=== PATIENT | female | born 1935 | race Caucasian/White ===

== ENCOUNTER → 2018-01-26 | Outpatient (REF) ==
[~2018-01-26] MED LIST: FIBER0.52 GM PO; K-TAB10 PO; LASIX 20MG TABL20 MG PO; NORVASC 5MG5 MG/TAB PO; PROTONIX 40MG T40 MG PO; SENOKOT S 50 MG1 TAB PO; STOOL SOFTENER100 M2 PO; ULTRAM 50MG TAB50 MG PO
== END ==
LOC: ZLAB.WCH 13:13
DX: Z01.89 Encounter for other specified special examinations (principal)

== ENCOUNTER → 2020-08-25 | Outpatient (REF) ==
[~2020-08-25] MED LIST changes: +CALCITRIOL PO; +CEPHALEXIN500 M1 PO; +COSOPT 2%-0.5%10 ML OU; +DICLOZOR1 EACH TP; +FERRO-TIME325 MG PO; +MIRALAX PA17 GM/Dose PO; +ORAPRED ODT10 MG PO; +SENNA-LAX8.6 MG PO; +XALATAN EYE DROPS OD; +XARELTO15 MG PO; +ZESTRIL 5MG5 MG PO; +ZOFRAN ODT4 MG PO; +ZYLOPRIM 100MG100 MG PO
== END ==
LOC: ZLAB.WCH 16:00
DX: Z01.89 Encounter for other specified special examinations (principal)

== ENCOUNTER → 2020-09-17 | Outpatient (CLI) | payer OTHER ==
[~2020-09-17] VITALS: Ht 157.5 cm; Wt 62.5 kg
[2020-09-17 11:24] VITALS: BP 109/61; PULSE 79; TEMP 98.2
--- NOTE | 2020-09-17 12:30 | NUR ---
Pt taken out from [facility] by [facility] to be returned to [facility].
== END ==
LOC: EUO 08:16
DX: Z45.2 Encounter for adjustment and management of vascular access device (principal); L03.90 Cellulitis, unspecified
CPT/HCPCS: C1751

== ENCOUNTER 2021-03-07 15:40 | Observation (INO) | payer MEDICARE ==
[~2021-03-07] VITALS: Ht 157.5 cm; Wt 61.2 kg
[~2021-03-07 15:40] MED LIST changes: -XALATAN EYE DROPS OD; +XALATAN EYE DROPS OS
[2021-03-07 15:54] VITALS: BP 132/58; PULSE 93; TEMP 97.8
[2021-03-07] MEDS ORDERED: XARELTO20 MG PO (16:08)
[2021-03-07] MEDS ORDERED: PRINIVIL10 MG PO (16:09)
[2021-03-07] MEDS ORDERED: LASIX 40MG TABL40 MG PO (16:10)
[2021-03-07] MEDS ORDERED: PREDFORTE5ML OD (16:11)
[2021-03-07] MEDS ORDERED: COLACE 100100 MG/CAP PO (16:13)
[2021-03-07] MEDS ORDERED: COSOPT 2%-0.5%10 ML OS (16:14)
[2021-03-07] MEDS ORDERED: ATROPINE SULFATE5 ML OD (16:14)
[2021-03-07] MEDS ORDERED: ZAROXOLYN 2.52.5 MG PO (16:15)
--- NOTE | 2021-03-07 16:26 | NUR ---
PT ARRIVED TO FLOOR, VITALS TAKEN, ASSESSMENT PERFORMED, PT DENIES DIZZINESS, DENIES PAIN, NO OTHER NEEDS
[2021-03-07 16:51] LABS: BASO % 0.4 % (0.0-2.0); EOS % 0.5 % (0.0-4.0); GRAN # 5.7 K/mm3 (1.4-6.5); GRAN % 70.6 % (42.2-75.2); LYMPH # 1.9 K/mm3 (1.2-3.4); LYMPH % 22.8 % (20.0-51.0); MEAN CELL VOLUME 97 fl (80.0-100.0); MEAN CORPUSCULAR HGB CONC 30 g/dl (33.0-37.0); MONO # 0.4 K/mm3 (0.1-0.6); MONO % 5.1 % (1.7-9.3); PLATELET COUNT 225 K/mm3 (130-400); RED BLOOD COUNT 1.76 M/mm3 (4.10-5.30); REDCELL DISTRIBUTION WIDTH-CV 17.8 % (11.5-14.5)
[2021-03-07 16:54] LABS: HEMATOCRIT 17.1 % (37.0-47.0); HEMOGLOBIN 5.2 g/dl (12.5-16.0); MEAN CORPUSCULAR HEMOGLOBIN 30 pg (27-31)
--- NOTE | 2021-03-07 17:54 | NUR ---
PT PLEASANT, AOX4, DENIES PIAN, DIZZINESS, BOTTOM EXCORIATED BUT BLANCHABLE. PT WHEEL CHAIR BOUND AT HOME, WILL START BOWEL PREP TONIGHT, NO OTHER NEEDS
[2021-03-07 18:37] LABS: ALANINE AMINOTRANSFERASE < 6 U/L (0-55); ALBUMIN 2.8 gm/dL (3.4-4.8); ALKALINE PHOSPHATASE 33 U/L (40-150); ANION GAP 11 mmol/L (7-16); AST,SGOT 14 U/L (5-34); BILIRUBIN,TOTAL 0.3 mg/dL (0.2-1.2); BLOOD UREA NITROGEN 89 mg/dL (10-20); CALCIUM 7.6 mg/dL (8.4-10.2); CARBON DIOXIDE 17 mmol/L (23-31); CHLORIDE 116 mmol/L (98-107); CREATININE, serum 1.99 mg/dL (0.57-1.11); GLUCOSE 109 mg/dL (70-99); POTASSIUM 4.2 mmol/L (3.5-4.5); SODIUM 144 mmol/L (136-145); TOTAL PROTEIN 4.6 gm/dL (6.2-8.1)
--- NOTE | 2021-03-07 18:39 | NUR ---
BOWEL PREP TAKEN TO PT, EDUCATED ON DRINKING UNTIL STOOL IS CLEAR
[2021-03-07 22:18] VITALS: BP 159/57; PULSE 85; TEMP 98
[2021-03-07 22:30] VITALS: BP 111/46; PULSE 95; TEMP 98
[2021-03-07 23:20] VITALS: BP 137/81; PULSE 95; TEMP 98
[2021-03-08] VITALS (15 sets, daily range): BP systolic 89–154; BP diastolic 27–96; PULSE 87–106; TEMP 97.5–99.6
[2021-03-08 06:43] LABS: MEAN CORPUSCULAR HGB CONC 33 g/dl (33.0-37.0); MEAN PLATELET VOLUME 9.9 fl (7.4-10.4); PLATELET COUNT 193 K/mm3 (130-400); RED BLOOD COUNT 2.75 M/mm3 (4.10-5.30); REDCELL DISTRIBUTION WIDTH-CV 17.4 % (11.5-14.5)
[2021-03-08 06:46] LABS: HEMATOCRIT 24.7 % (37.0-47.0); HEMOGLOBIN 8.2 g/dl (12.5-16.0); MEAN CELL VOLUME 90 fl (80.0-100.0); MEAN CORPUSCULAR HEMOGLOBIN 30 pg (27-31)
[2021-03-08 06:56] LABS: CALCIUM 7.6 mg/dL (8.4-10.2); CREATININE, serum 1.66 mg/dL (0.57-1.11); POTASSIUM 3.7 mmol/L (3.5-4.5)
[2021-03-08 07:33] LABS: ANISOCYTOSIS 1+; BAND 6 % (0-10); LYMPHOCYTE 3 % (20.0-51.0); NEUTROPHILS 91 % (42.0-75.2); OVALOCYTES 1+; PLATELET ESTIMATE NORMAL (NORMAL); SCHISTOCYTES 1+
--- NOTE | 2021-03-08 07:38 | NUR ---
transfused 2 units this shift of RBCs, c/o nausea during 2nd unit, SRUTHI Mccray notified for prn order of zofran, dose given which pt reported helped. pt had 4 episodes of loose brownish-green, dark blackish-red stool, was able to drink 2L of golytely before becoming nauseated. pt c/o generalized pain in upper and lower limbs with touch and movement, tramadol 100 mg given x2 this shift.
--- NOTE | 2021-03-08 10:54 | NUR ---
Assessment completed, alert /oriented, vital signs stable/ slight hypotensive and holding on antihypertensive meds this morning, heart RRR/ distal pulses are palapble, 3+edema to BLE, hemaglobin 8.2 this morning after having received 2 units PRBC overnight, lungs CTA/ no resp.difficulty noted, housekeeping room attendant reports good bowel prep results, patient has been NPO and consent signed for EGD/Colonsocpy today, family present in the room, they deny toher needs at this time
--- NOTE | 2021-03-08 11:17 | NUR ---
health outreach worker met with patient to discuss discharge plan. Patient's Dejan ([phone]) and daughter at bedside. Patient reports that she needs assistance with her activities of daily living, most of which is provided by her ,but she does report to having a private duty caregiver that comes in once a week to help with showering. Patient states that she is cheel chair bound. Patient reports that she has oxygen at home but she "doesn't use it" and thinks that it is supplied through [facility]. PCP is Dr. Lema and she utilizes [facility] for medications with no cost difficulty. Patient reports that she does not have a DPOA-HC established and at this time is not interested in one. Education is provided to the patient, her and daughter and what a legal DPOA-HC is. All verbalize their understanding and patient still declines establishing one. Patient is already established with [facility] out of [place] for PT/OT and nursing. Discharge plan: Awaiting PT/OT rec's
[2021-03-08 17:41] LABS: HEMATOCRIT 23.3 % (37.0-47.0); HEMOGLOBIN 7.7 g/dl (12.5-16.0)
[2021-03-09 00:32] VITALS: BP 129/53; PULSE 87; TEMP 98.4
[2021-03-09 01:44] LABS: COLLECTION METHOD CLEAN CATCH
--- NOTE | 2021-03-09 01:45 | NUR ---
IT IS NOTED THAT [facility] IS ORDERED FOR PT BUT HAS BEEN COLLECTED. PT IS INCONTINENT OF BOWEL ET BLADDER. Jose NEGRO NOTIFIED ET NEW ORDER RECIEVED TO STRAIGHT CATH PT ONCE. PT IS AWAKE @ THIS TIME LOOKING @ TABLET, PROCEDURE EXPLAINED TO PT ET PT VERBALIZES UNDERSTANDING. PCT BRIGID ASSISTS IN ROOM WITH PT. LUPE CARE COMPLETED BEFORE ET AFTER. PT IS BLADDER SCANNED BEFORE BEING CATHETERIZED, 150 ML SEEN IN BLADDER. PT IS INCONTINENT OF SOME URINE ET WAS NOT AWARE. PT HAS WHITE DISCHARGE AROUND VULVA ET BUTTOCKS. SKIN IS RED ET MOIST. PT STATES THAT AREA DOES NOT HURT BUT THAT SHE WAS BEING TREATED FOR A YEAST INFECTION BEFORE BEING HOSIPTALIZED. INCONTINENCE BRIEF TAKEN OFF OF PT ET IS LEFT WITH JUST A PAD UNDERNEATH. Jose NEGRO NOTIFIED, NEW ORDERS RECIEVED. PT IS SLEEPING, DESENEX POWDER WILL BE APPLIED WHEN PT IS TURNED NEXT TIME. RESPIRATIONS ARE UNLABORED. CALL LIGHT WITHIN REACH.
[2021-03-09 01:50] LABS: PH 5 (5-8); SQUAMOUS EPITHELIAL None Seen /hpf (0-10); URINE APPEARANCE Clear (CLEAR/HAZY); URINE BACTERIA Rare /hpf (NONE SEEN); URINE BILIRUBIN Negative (NEGATIVE); URINE BLOOD Negative (NEGATIVE); URINE COLOR Yellow (YELLOW); URINE GLUCOSE Negative (NEGATIVE); URINE KETONE Trace (NEGATIVE); URINE LEUKOCYTE ESTERASE Negative (NEGATIVE); URINE NITRATE Negative (NEGATIVE); URINE PROTEIN(semi-quant) Negative (NEGATIVE); URINE RBC 0-2 /hpf (0-2); URINE UROBILINOGEN Negative (NEGATIVE)
[2021-03-09 04:44] VITALS: BP 104/72; PULSE 90; TEMP 98.2
[2021-03-09 06:32] LABS: BASO # 0.1 K/mm3 (0.0-0.2); BASO % 0.5 % (0.0-2.0); EOS # 0.1 K/mm3 (0.0-0.7); EOS % 0.9 % (0.0-4.0); GRAN # 9.9 K/mm3 (1.4-6.5); GRAN % 81.4 % (42.2-75.2); LYMPH # 1.5 K/mm3 (1.2-3.4); LYMPH % 12.5 % (20.0-51.0); MEAN CELL VOLUME 90 fl (80.0-100.0); MEAN CORPUSCULAR HGB CONC 33 g/dl (33.0-37.0); MEAN PLATELET VOLUME 9.8 fl (7.4-10.4); MONO # 0.5 K/mm3 (0.1-0.6); PLATELET COUNT 182 K/mm3 (130-400); RED BLOOD COUNT 2.34 M/mm3 (4.10-5.30)
[2021-03-09 06:34] LABS: HEMATOCRIT 21.1 % (37.0-47.0); MEAN CORPUSCULAR HEMOGLOBIN 30 pg (27-31)
--- NOTE | 2021-03-09 06:48 | NUR ---
PT CHECKED FOR INCONTINENCE ET REPOSITIONED IN BED. GAYMAR BOOTS ON BILATERAL FEET. PT DENIES PAIN ET IS NOT INCONTINENT. GOWN IS CHANGED. CARAFATE IS ADMINISTERED ET PT IS EDUCATED ON TIMING OF TAKING MEDICATION ET MEAL TIMES.
[2021-03-09 06:55] LABS: CALCIUM 7.5 mg/dL (8.4-10.2); CREATININE, serum 1.41 mg/dL (0.57-1.11); POTASSIUM 3.7 mmol/L (3.5-4.5)
[2021-03-09 07:55] VITALS: BP 127/59; PULSE 97; TEMP 98.4
--- NOTE | 2021-03-09 08:55 | NUR ---
Assessment completed, alert/oriented, vital signs stable, denies pain this morning, hemaglobin 7.0, no bloody stools or bleeding noted overnight or this morning, heart RRR/distal pulses are palpable, lungs CTA/ no resp.difficulty noted, she is sitting up eating breakfast, morning meds given, she denies other needs at this time will cotinue to monitor
[2021-03-09 12:09] VITALS: BP 101/43; PULSE 89; TEMP 98.6
--- NOTE | 2021-03-09 15:49 | NUR ---
First visit from the gas operator. No needs right now.
[2021-03-09 16:35] LABS: HEMATOCRIT 21.7 % (37.0-47.0); HEMOGLOBIN 7.1 g/dl (12.5-16.0)
[2021-03-09 17:18] VITALS: BP 128/47; PULSE 89; TEMP 98.9
[2021-03-09 20:24] VITALS: BP 126/57; PULSE 97; TEMP 98.2
[2021-03-10] VITALS (7 sets, daily range): BP systolic 125–146; BP diastolic 57–89; PULSE 84–94; TEMP 98–98.8
--- NOTE | 2021-03-10 06:00 | NUR ---
PT IS AWAKE @ THIS TIME, HAS SLEPT ON ET OFF THROUGH NIGHT IN BED. PT HAS BEEN REPOSITIONED. BILATERAL GAYMAR BOOTS IN PLACE. PUREWICK HAS BEEN CHANGED ET IS IN PLACE. PERICARE COMPLETED. LIGHT SILVA CLOUDY URINE IS SEEN IN CANNISTER. PT USES TABLET WHILE IN BED. RESPIRATIONS UNLABORED. PT DENIES OTHER NEEDS. CALL LIGHT WITHIN REACH.
[2021-03-10 06:16] LABS: MEAN CELL VOLUME 91 fl (80.0-100.0); MEAN CORPUSCULAR HGB CONC 33 g/dl (33.0-37.0); MEAN PLATELET VOLUME 9.8 fl (7.4-10.4); PLATELET COUNT 182 K/mm3 (130-400); RED BLOOD COUNT 2.39 M/mm3 (4.10-5.30); REDCELL DISTRIBUTION WIDTH-CV 17.5 % (11.5-14.5)
[2021-03-10 06:19] LABS: CALCIUM 7.7 mg/dL (8.4-10.2); CREATININE, serum 1.15 mg/dL (0.57-1.11); POTASSIUM 4.1 mmol/L (3.5-4.5)
[2021-03-10 06:25] LABS: HEMATOCRIT 21.7 % (37.0-47.0); HEMOGLOBIN 7.1 g/dl (12.5-16.0); MEAN CORPUSCULAR HEMOGLOBIN 30 pg (27-31)
--- NOTE | 2021-03-10 11:28 | NUR ---
Patient playing on tablet upon entering the room. Scheduled medications given. Shift assessment performed. Skin issues noted in shift assessment. Patient denies any pain, discomfort, SOA, or further needs at this time. Family updated on plan of care. VSS. Patient A&O. Call light in reach. Fall percautions in place.
--- NOTE | 2021-03-10 14:14 | NUR ---
Patient is going to require Eloquis at time of discharge. BERENICE collaborated with Delroy, Pharmacist who has been working with the family, [facility], and Hospitalist on this as patient's insurance changes at the beginning of the new year. BERENICE contacted Mari at [facility] and faxed clinical updates. Discharge Plan: Home with [facility]
--- NOTE | 2021-03-10 17:33 | NUR ---
Patient has had an ok day. Denies any pain, discomfort, SOA, or further needs at this time. Eliquis restarted. No s/s of bleeding. Patient able to get up in wheelchair with the assistance of PT. Family updated on plan of care. VSS. Patient A&O. Call light in reach. Fall percautions in place.
--- NOTE | 2021-03-10 23:44 | NUR ---
ASSESSMENT COMPLETE FOR THIS SHIFT. PT COOPERATIVE WITH CARES. PT RESTING IN BED WATCHING TV. PT DENIES PALPITATIONS, SOB OR DIZZINESS. PT DENIED PAIN EARLIER IN SHIFT, BUT AROUND 2300HRS, COMPLAINED OF ARM PAIN WHICH SHE RATED AN 8. TRAMADOL GIVEN FOR PAIN. PT STATES SHE HAS NO OTHER NEEDS AT THIS TIME. CALL LIGHT WITHIN REACH.
[2021-03-11 03:50] VITALS: BP 125/67; PULSE 83; TEMP 98.4
[2021-03-11 05:52] LABS: MEAN CELL VOLUME 91 fl (80.0-100.0); MEAN CORPUSCULAR HGB CONC 32 g/dl (33.0-37.0); MEAN PLATELET VOLUME 9.5 fl (7.4-10.4); PLATELET COUNT 202 K/mm3 (130-400); RED BLOOD COUNT 2.43 M/mm3 (4.10-5.30); REDCELL DISTRIBUTION WIDTH-CV 17.2 % (11.5-14.5)
[2021-03-11 06:04] LABS: CALCIUM 7.8 mg/dL (8.4-10.2); CREATININE, serum 1.11 mg/dL (0.57-1.11); POTASSIUM 4.3 mmol/L (3.5-4.5)
[2021-03-11 06:18] LABS: HEMATOCRIT 22.2 % (37.0-47.0); HEMOGLOBIN 7.2 g/dl (12.5-16.0); MEAN CORPUSCULAR HEMOGLOBIN 30 pg (27-31)
[2021-03-11 07:56] VITALS: BP 114/56; PULSE 96; TEMP 99.2
[2021-03-11] MEDS ORDERED: ELIQUIS 2.5 PO ×2 (08:56→08:57)
--- NOTE | 2021-03-11 12:01 | NUR ---
cargo station worker met with patient and her family as patient is discharging home this date. Worker contacted [facility] in [place] and advised of discharge as well as faxed them orders. Worker and pharmacist provided information on Eliquis.
--- NOTE | 2021-03-11 12:30 | NUR ---
Scheduled medications given. Shift assessment performed. Skin issued noted in shift assessment. VSS. Patient A&O. Patient deemed fit for discharge home with home health. Discharge education/instructions given. All questions and concerns answered. IV DC'd, catheter intact, no signs of phlebitis. Skin tears cleaned, new dressing placed. Patient denies any pain, discomfort, SOA, or further needs at this time. Patient escorted from building by [facility] Staff via wheelchair. Family transporting home.
== END 2021-03-11 12:30 | disposition home health service (06) ==
LOC: MEDICAL 15:40
PROVIDERS: Internal Medicine; Physician Assistant; ADMIT Internal Medicine
DX: D50.0 Iron deficiency anemia secondary to blood loss (chronic) (principal); K31.7 Polyp of stomach and duodenum; K21.9 Gastro-esophageal reflux disease without esophagitis; K44.9 Diaphragmatic hernia without obstruction or gangrene; K51.40 Inflammatory polyps of colon without complications; I27.20 Pulmonary hypertension, unspecified; K57.30 Diverticulosis of large intestine without perforation or abscess without bleeding; I13.0 Hypertensive heart and chronic kidney disease with heart failure and stage 1 through stage 4 chronic kidney disease, or unspecified chronic kidney disease; N18.30 Chronic kidney disease, stage 3 unspecified; I50.9 Heart failure, unspecified; E66.9 Obesity, unspecified; K59.09 Other constipation; K59.00 Constipation, unspecified; B37.3 Candidiasis of vulva and vagina; E87.2 Acidosis; R53.81 Other malaise; M19.90 Unspecified osteoarthritis, unspecified site; H40.9 Unspecified glaucoma; M79.89 Other specified soft tissue disorders; Z79.891 Long term (current) use of opiate analgesic; Z99.3 Dependence on wheelchair; Z86.718 Personal history of other venous thrombosis and embolism; Z79.01 Long term (current) use of anticoagulants; Z86.711 Personal history of pulmonary embolism; Z79.899 Other long term (current) drug therapy
CPT/HCPCS: 99232-AI; 99233-AI; 99239; C9113; G0378; J2405; J2704; P9016

== ENCOUNTER → 2021-05-11 10:35 | Outpatient (RCR) | payer MEDICARE ==
[~2021-05-11 10:35] MED LIST changes: +ATROPINE SULFATE5 ML OD; +COLACE 100100 MG/CAP PO; +COSOPT 2%-0.5%10 ML OS; +ELIQUIS 2.5 PO; +LASIX 40MG TABL40 MG PO; +PREDFORTE5ML OD; +PRINIVIL10 MG PO; +XARELTO20 MG PO; +ZAROXOLYN 2.52.5 MG PO
== END | disposition home or self-care (01) ==
LOC: WSPT 05-04 13:00
DX: Q82.0 Hereditary lymphedema (principal)

== ENCOUNTER 2021-05-18 12:32 | Outpatient (RCR) | payer MEDICARE | END 2021-06-09 | LOC: WSPT | DX: Q82.0 Hereditary lymphedema (principal) ==

== ENCOUNTER 2021-07-13 09:30 | Outpatient (CLI) | payer MEDICARE ==
[~2021-07-13] VITALS: Ht 157.5 cm; Wt 52.7 kg
[2021-07-13 10:13] VITALS: BP 135/63; PULSE 104; TEMP 97.8
== END 2021-07-13 13:41 | disposition home or self-care (01) ==
LOC: EUO 09:30
DX: J98.11 Atelectasis (principal); J84.9 Interstitial pulmonary disease, unspecified; N39.0 Urinary tract infection, site not specified; B96.5 Pseudomonas (aeruginosa) (mallei) (pseudomallei) as the cause of diseases classified elsewhere
CPT/HCPCS: C1751; J0692